=== PATIENT | male | born 1950 | race Caucasian/White ===

== ENCOUNTER 2022-02-17 15:13 | Outpatient (REF) | payer MEDICARE, SELFPAY ==
--- NOTE | ~2022-02-17 | MR_ITS ---
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 COMPARISON: None TECHNIQUE: Multiplanar multisequence MR imaging of the brain was done. FINDINGS: Brain Volume: There is [id number] generalized diffuse brain parenchymal volume loss, with no definite disproportionate focal regional predominance within the limitations of a qualitative assessment. Structural: No malformations. Brain and Meninges: DWI sequence demonstrates no restricted diffusion. Specifically, there is no evidence for acute or subacute cerebral ischemia. A few small, scattered FLAIR/T2 signal hyperintensities are seen within the subcortical and deeper white matter of both cerebral hemispheres which are nonspecific findings but likely reflect tiny zones of chronic ischemic microangiopathy. Gradient refocused imaging demonstrates no evidence for hemorrhage, hemosiderin staining or abnormal mineral deposition. No extra-axial fluid collections, space-occupying process or mass effect are identified. Ventricles and Subarachnoid Spaces: The ventricular system and subarachnoid spaces are consistent with [id number] generalized volume loss without hydrocephalus. Orbital Structures: Bilateral lens extractions are noted. Otherwise, the visualized orbital structures are grossly unremarkable within the limitations of the study. Vascular: Signal voids are noted in the visualized major intracranial vessels. Osseous Structures, Sinuses/Mastoids, Extracranial Soft Tissues: There is somewhat diffusely hypointense marrow signal intensity on T1-weighted imaging, including the upper cervical spine, which is a nonspecific finding. Differential diagnostic considerations include red marrow hyperplasia secondary to various etiologies, such as chronic anemia, smoking or obesity, and less likely myelodysplastic and/or myeloproliferative diseases. Suggest correlation with CBC and clinical history. There are multiple intraparotid and periparotid lymph nodes which are not pathologically enlarged. There is minor mucosal thickening in the ethmoid complex and frontal sinuses. Small retention cyst floor of the left maxillary sinus. MR/MR head/brain wo con IMPRESSION: 1. Mild, scattered chronic ischemic microangiopathy in the white matter of both cerebral hemispheres with no evidence for acute or subacute cerebral ischemia, acute territorial infarct, hemorrhage, space-occupying process, mass effect or hydrocephalus. 2. [id number] generalized diffuse brain parenchymal volume loss. 3. Diffusely hypointense marrow signal intensity on T1-weighted imaging. Suggest correlation with CBC and clinical history. See above for details.
== END 2022-02-17 15:14 | disposition home or self-care (01) ==
LOC: HO.MRI 15:13
PROVIDERS: Visit Provider Psychiatry & Neurology Neurology
DX: R27.0 Ataxia, unspecified (principal)
CPT/HCPCS: 70551